=== PATIENT | male | born 1935 | race Caucasian/White ===

== ENCOUNTER 2016-09-12 13:34 | Observation (INO) | payer MEDICARE ==
[~2016-09-12] VITALS: Ht 175.3 cm; Wt 97.7 kg
[2016-09-12 14:41] LABS: BASO % 0.1 % (0.0-1.0); EOS # 0.1 K/mm3 (0.0-0.50); EOS % 0.6 % (0.0-3.0); LARGE UNSTAINED CELL # 0.1 K/mm3 (0.0-0.4); LARGE UNSTAINED CELL % 0.4 % (0.0-4.0); LYMPH # 0.7 K/mm3 (1.5-4.5); LYMPH % 5.4 % (24.0-44.0); MEAN CORPUSCULAR HEMOGLOBIN 31.2 pg (27.0-33.0); MEAN CORPUSCULAR HGB CONC 34.3 g/dl (32.0-36.5); MEAN CORPUSCULAR VOLUME 90.8 fl (80.0-96.0); MONO # 0.4 K/mm3 (0.0-0.8); NEUTROPHILS # 11.1 K/mm3 (1.8-7.7); NEUTROPHILS % 90.5 % (36.0-66.0); PLATELET COUNT, AUTOMATED 204 k/mm3 (150-450); RED CELL DISTRIBUTION WIDTH 12.3 % (11.5-14.5); WHITE BLOOD COUNT 12.2 K/mm3 (4.0-10.0)
--- NOTE | 2016-09-12 14:58 | ECGEPIP ---
Stationary ECG Study [facility] - ED Test Date: 2016-09-12 Pat Name: YUMIKO HAM Department: Room: - Gender: M Banana Grader: JACKIE : 1935 Requested By: SAMY Hawley Order Number: [id number] Reading MD: Taurus Marshall Measurements Intervals [place] Rate: 79 P: -41 WY: 141 QRS: -52 QRSD: 109 T: 57 QT: 380 QTc: 437 Interpretive Statements SINUS RHYTHM PATTERN CONSISTENT WITH PULMONARY DISEASE LEFT ANTERIOR FASCICULAR BLOCK MODERATE ST DEPRESSION SIMILAR TO 01/24/12 Electronically Signed On 09-12-2016 14:58:37 EDT by Taurus Marshall
[2016-09-12 15:03] LABS: ANION GAP 11 MEQ/L (8-16); BLOOD UREA NITROGEN 16 MG/DL (7-18); CALCIUM LEVEL 8.9 MG/DL (8.8-10.2); CARBON DIOXIDE LEVEL 27 MEQ/L (21-32); CHLORIDE LEVEL 100 MEQ/L (98-107); CREATININE FOR GFR 1.56 MG/DL (0.70-1.30); FREE T4 1.32 NG/DL (0.76-1.46); GLOMERULAR FILTRATION RATE 45.7 (>35); GLUCOSE, FASTING 190 MG/DL (83-110); POTASSIUM SERUM 3.6 MEQ/L (3.5-5.1); SODIUM LEVEL 138 MEQ/L (136-145)
[2016-09-12] MEDS ORDERED: METO12TA PO (15:18)
[2016-09-12] MEDS ORDERED: MULTTAB23 PO (15:18)
[2016-09-12] MEDS ORDERED: ZYRT10CA PO (15:18)
[2016-09-12] MEDS ORDERED: ASPI1TAB PO ×2 (15:18→16:27)
[2016-09-12] MEDS ORDERED: PANT20TA PO (15:18)
[2016-09-12] MEDS ORDERED: DYAZ37.5 PO (15:18)
[2016-09-12] MEDS ORDERED: COQ-100C2 PO (15:18)
[2016-09-12] MEDS ORDERED: CLOP75TA2 PO (15:18)
[2016-09-12] MEDS ORDERED: ATOR40TA PO (15:18)
[2016-09-12] MEDS ORDERED: ISOS30TA4 (15:18)
[2016-09-12] MEDS ORDERED: TRIA37.53 PO (15:18)
--- NOTE | 2016-09-12 15:21 | REP ---
PORTABLE CHEST: 09/12/2016 Comparison two-view chest earlier today at [facility]. CLINICAL HISTORY: Syncope, near-syncope. Lung mcginnis are adequately inflated slightly better than on the previous study. There is some basilar fibrotic change, greatest in the infrahilar region on the right, but no pleural effusion, lateral pleural thickening or pneumothorax. No parenchymal mass. Heart not grossly enlarged. There is no vascular redistribution or edema. The aorta is mildly tortuous, calcified without aneurysm. Airway intact. There are degenerative changes of the shoulders and spine. IMPRESSION: 1. Some basilar fibrotic change but no cardiomegaly, edema, effusion or acute infiltrate. Signed by Trevor Arriaga MD 09/12/2016 05:22 P
[2016-09-12] MEDS ORDERED: ACETAMINOPHEN TAB 650MG DOSE (2X325MG) PO PRN (15:45)
[2016-09-12] MEDS ORDERED: ONDANSETRON 4MG/2ML VIAL (J2405) IV PRN (15:45)
[2016-09-12] MEDS ORDERED: hydrOXYzine 25 MG TAB PO PRN (16:00)
[2016-09-12] MEDS ORDERED: raNITIdine SYRUP 150 MG/10 ML UDC PO ONE (16:15)
[2016-09-12] MEDS ORDERED: ISOS30TA4 PO (16:27)
[2016-09-12] MEDS ORDERED: FISH120012 PO (16:27)
[2016-09-12] MEDS ORDERED: PANT40TA2 PO (16:27)
[2016-09-12] MEDS ORDERED: VITA100066 PO (16:27)
[2016-09-12] MEDS ORDERED: NS 1,000 ML IV SCH (18:30)
[2016-09-12 18:59] VITALS: BP 141/63
--- NOTE | 2016-09-12 19:49 | HPE ---
DATE OF ADMISSION: 09/12/2016 PRIMARY CARE PHYSICIAN: Dr. Christine Saldivar INPATIENT HOSPITALIST ATTENDING: Dr. Enrique Leung CHIEF COMPLAINT: Syncopal episode. HISTORY OF THE PRESENT ILLNESS: An 80-year-old male with a history of coronary artery disease, status post stenting, recent nuclear stress test with [place] [facility], Dr. Prakash, was around May 2016, with reversible ischemia. The patient has been in his usual state of health until about 3 weeks ago when he complained of a productive cough, feeling fullness, shortness of breath, was given antibiotics at Dr. Saldivar's office. The patient states that after two to three of those intravenous medications, his "pneumonia" becomes controlled. A week later, the patient felt fullness of the lungs again with cough, no fever, chills, slight productive cough with dry white sputum. Once a year, he sees Dr. Saldivar for treatment and made an appointment on Monday. The patient was able to be seen on Monday, received a shot of ceftriaxone as he normally does and received Breo Ellipta. After taking the Breo Ellipta, the patient developed a maculopapular rash in bilateral upper extremities and chest. He went for a chest x-ray, sent for evaluation for pneumonia. Patient felt faint going into the room, he stool up too quickly, felt fainting and sat on the bed. He otherwise denies any nausea, vomiting, diaphoresis, chest pain, pressure, tightness, palpitations or lightheadedness. No dizziness. He was brought into the emergency room after the patient was found unresponsive for a few seconds. EKG in the emergency room shows sinus rhythm, ventricular rate of 79, pattern consistent with pulmonary disease with left anterior fascicular block and moderate ST depressions in the anterolateral leads. Hospitalist service was called for admission for patient's syncopal episode, evaluation of abnormal EKG. PAST MEDICAL HISTORY: Coronary artery disease, stent. Carotid endarterectomy bilaterally. History of pneumonia. Allergies. Hypercholesterolemia. Hypertension. Reflux disease. PAST SURGICAL HISTORY: Carotid endarterectomy bilaterally. Bilateral knee replacements. Stents. Bilateral hernia repair. SOCIAL HISTORY: Drinks wine occasionally with his meals, maybe twice a month. 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 No cigarette use. ALLERGIES: No allergies to food or medications prior to today - BREO ELLIPTA causing rash. REVIEW OF SYSTEMS: 12-point system negative aside from positive findings on history of the present illness. FAMILY HISTORY Noncontributory due to age. PHYSICAL EXAMINATION: Temperature 97.7, pulse 70, sinus rhythm, respiratory rate 18, blood pressure is 134/63, 95% on room air. Generlaly, the patient is awake, alert, oriented times three, answering questions appropriately. No jugular venous distention. No thyromegaly. No cervical lymphadenopathy. Dry mucous membranes. Lungs are diminished but clear to auscultation. No wheezing, rales, or rhonchi. Heart: S1, S2, sinus rhythm. No murmurs, rubs or gallops. Neck: The patient has prior bilateral carotid endarterectomy scars. Abdomen: Soft, nontender, nondistended. Bilateral hernia repair. Surgical scars well healed. Extremities: Trace pitting edema. LABORATORY DATA: White count 12.2, hemoglobin 13, hematocrit 37 and platelet count 204. Sodium 138, potassium 3.6, chloride 100, bicarbonate 27, BUN 16, creatinine 1.56, glucose of 190. Chest x-ray: Some basilar fibrotic change. No cardiomegaly, edema, effusion or acute infiltrate. ASSESSMENT AND PLAN: This is an 80-year-old male with a history of recurrent pneumonias, coronary artery disease, myocardial infarction (GA), stent, hypertension, hypercholesterolemia, reflux, carotid endarterectomy, peripheral vascular disease, bilateral knee replacement, hernia repair bilaterally, presents to the emergency room after a syncopal episode while in radiology getting a chest x-ray performed, and a maculopapular rash on the arms and chest after using Breo Ellipta. The patient had a syncopal episode and admitted for evaluation. Labs showed acute kidney injury. The patient will be admitted for observation, assigned to Dr. Leung for the following issues: 1. Syncope, most likely secondary to orthostatic hypotension or vasovagal syncope. The patient's triamterene, will be held in light of acute kidney injury and syncopal episode. Check vital, orthostatics, gentle fluid hydration 75 mL per hour. Rule out arrhythmia. Telemetry monitoring in the progressive care unit (PCU). Cycle cardiac markers. Obtain a 3D echo. The patient has no focal deficits on examination to warrant CT of the head. No changes in vision, headaches, no prior history of similar syncopal episodes. 2. Acute kidney injury, most likely secondary to dehydration, possible orthostasis. At this time, the patient's triamterene/hydrochlorothiazide will be discontinued. Gentle fluid hydration with normal saline 60 mL an hour. If no significant improvement, may check a PSA level and renal ultrasound. The patient denies any urinary symptoms at this time. Denies any difficulty maintaining starting his stream. Denies any nonsteroidal anti-inflammatory drug (NSAID) use. Denies any diarrhea or vomiting. 3. Upper respiratory infection symptoms. Receiving IV antibiotic as an outpatient. The patient has had a slightly elevated white count of 12.2. Will continue the ceftriaxone for now. Obtain official report of the chest x-ray. If sputum culture is negative, discontinue antibiotics. Check a respiratory panel. Continue with nebulizer treatments. 4. Peripheral vascular disease. Continue on home medications, aspirin. 5. Breo Ellipta causing a drug rash. Start on Zantac, Atarax as needed and two doses of prednisone. 6. Hyperlipidemia. Continue on atorvastatin. 7. Reflux. Continue on 8. History of peripheral vascular disease with carotid endarterectomy. Continue on aspirin.
[2016-09-12] MEDS: predniSONE 50 MG TAB PO SCH ×2 (20:23→23:40)
[2016-09-12 20:24] VITALS: BP 128/82
[2016-09-12] MEDS: TRIAMCINOLONE ACET 0.1% OINTMENT 15 GM TOP SCH (21:00)
[2016-09-12] MEDS: PANTOPRAZOLE 40MG TAB (PROTONIX) PO SCH (21:11)
[2016-09-12] MEDS: METOPROLOL TART 25 MG TABLET PO SCH (21:12)
[2016-09-12] MEDS: ATORVASTATIN 20 MG TAB PO SCH (21:12)
[2016-09-12 22:50] VITALS: BP 151/79
[2016-09-13] VITALS (7 sets, daily range): BP systolic 132–146; BP diastolic 64–73
[2016-09-13 05:30] LABS: EOS % 0.4 % (0.0-3.0); LARGE UNSTAINED CELL % 0.4 % (0.0-4.0); LYMPH # 0.9 K/mm3 (1.5-4.5); LYMPH % 11.7 % (24.0-44.0); MEAN CORPUSCULAR HGB CONC 34.3 g/dl (32.0-36.5); MEAN CORPUSCULAR VOLUME 90.4 fl (80.0-96.0); MONO # 0.2 K/mm3 (0.0-0.8); NEUTROPHILS # 6.2 K/mm3 (1.8-7.7); NEUTROPHILS % 84.5 % (36.0-66.0); PLATELET COUNT, AUTOMATED 204 k/mm3 (150-450); RED CELL DISTRIBUTION WIDTH 12.5 % (11.5-14.5); WHITE BLOOD COUNT 7.4 K/mm3 (4.0-10.0)
[2016-09-13 05:44] LABS: ANION GAP 11 MEQ/L (8-16); BLOOD UREA NITROGEN 18 MG/DL (7-18); CALCIUM LEVEL 8.9 MG/DL (8.8-10.2); CARBON DIOXIDE LEVEL 25 MEQ/L (21-32); CHLORIDE LEVEL 103 MEQ/L (98-107); CREATININE FOR GFR 1.36 MG/DL (0.70-1.30); GLOMERULAR FILTRATION RATE 53.5 (>35); GLUCOSE, FASTING 267 MG/DL (83-110); MAGNESIUM LEVEL 2.2 MG/DL (1.8-2.4); SODIUM LEVEL 139 MEQ/L (136-145)
[2016-09-13] MEDS: OCUVITE 1 TAB PO SCH (08:40)
[2016-09-13] MEDS: ASPIRIN 81 MG ENTERIC TAB PO SCH (08:40)
[2016-09-13] MEDS: raNITIdine SYRUP 150 MG/10 ML UDC PO SCH ×2 (08:42→21:23)
[2016-09-13] MEDS: CETIRIZINE (ZyrTEC) 10 MG TAB PO SCH (08:42)
[2016-09-13] MEDS: METOPROLOL TART 25 MG TABLET PO SCH ×2 (08:45→21:23)
[2016-09-13] MEDS: CLOPIDOGREL 75 MG TAB PO SCH (08:45)
[2016-09-13] MEDS: ISOSORBIDE MON. (IMDUR) 30 MG XR TAB PO SCH (08:45)
[2016-09-13] MEDS: VITAMIN D 1,000 INTERNATIONAL UNITS TABLET PO SCH (08:45)
[2016-09-13] MEDS: cefTRIAXone SOD 2 GM in D5W MINI-BAG PLUS 50 ML IV SCH (08:46)
[2016-09-13] MEDS: TRIAMCINOLONE ACET 0.1% OINTMENT 15 GM TOP SCH ×2 (09:00→21:00)
[2016-09-13] MEDS ORDERED: DYAZIDE 37.5/25 CAP (TRIAM/HCTZ) PO SCH (09:00)
--- NOTE | 2016-09-13 10:26 | ECGEPIP ---
Stationary ECG Study [facility] Test Date: 2016-09-13 Pat Name: YUMIKO HAM Department: Room: [place] [address] Gender: M Jack Frame Tender: TOMÁS : 1935 Requested By: ARMIDA Huston Order Number: [id number] Reading MD: Nicholas Reich Measurements Intervals [place] Rate: 92 P: 95 NV: 231 QRS: -51 QRSD: 110 T: 63 QT: 370 QTc: 459 Interpretive Statements Normal sinus rhythm First-degree AV block Left anterior hemiblock with subtle intraventricular conduction delay and slow precordial R-wave progression Lateral ST/T-wave abnormalities No change from 09/12/16 Electronically Signed On 09-13-2016 10:26:00 EDT by Nicholas Reich
--- NOTE | 2016-09-13 12:28 | IPN ---
DATE: 09/13/2016 80-year-old gentleman seen at bedside. No issues overnight. He is resting comfortably. He did have a 2D echo that is pending at this time. No chest pain, nausea, vomiting. Tolerating meals. He is pleasant to talk to. He did describe the issue with his syncopal episode, while he was having a study performed he had tunnel vision and became lightheaded and did feel that he completely blacked out as indicated in his history and physical (H and P). Additionally, he has been treated by Dr. Saldivar for his shortness of breath, cough, and pneumonia with Rocephin, which he feels he does respond typically to, and he has continued on this since his admission yesterday. OBJECTIVE: Temperature is 98.8, pulse 92, respiratory rate is 22, blood pressure 135/73, SPO2 is 94% on room air. GENERAL: The patient appears to be in no acute distress. He is alert, oriented. HEENT: Unremarkable. LUNGS: Clear. HEART: Regular rate and rhythm. ABDOMEN: Soft. EXTREMITIES: No edema, no calf tenderness. LABORATORIES: White count 7.4, down from 12.2. Hemoglobin is 12.7 and platelets 204,000. Sodium 139, potassium 4.0, chloride 103, bicarb 25, anion gap 11, BUN is 18, creatinine 1.36 down from 1.56, glucose 267, hemoglobin A1c 8.3. Troponins remained less than 0.02 times four. Chest x-ray yesterday did show some basilar fibrotic change but no cardiomegaly, edema, effusion, or acute infiltrate. ASSESSMENT/PLAN: 1. Syncope, likely vasovagal versus orthostatic. Diuretics have been placed on hold for the time being, which appears to be some mild acute kidney injury. Orthostatics appear to be unremarkable. No issues seen on telemetry. His cardiac markers have been negative. 2D echo is pending at this time. 2. Acute kidney injury, likely secondary to some mild dehydration. His diuretics are on hold. He did receive some gentle fluid hydration which we will discontinue. Avoid nephrotoxic medications. He does not appear to have any obstructive uropathy. He does appear to be voiding fine. Will continue to follow, and repeat his renal profile tomorrow morning. 3. Upper respiratory infection. Lungs appear to be clear. He is receiving Rocephin. Will continue for now. His chest x-ray is unremarkable, and he will continue with Roque and followup with Dr. Saldivar as an outpatient. 4. Drug rash. Breo Ellipta has been discontinued. He did receive some Zantac, Atarax, two doses of prednisone. No further issues. 5. Hyperlipidemia. Continue atorvastatin. 6. Gastroesophageal reflux disease (GERD). Continue on Zantac. 7. History of peripheral vascular disease with carotid endarterectomy in the past. Can followup as outpatient. 8. Deep venous thrombosis (DVT) prophylaxis. Encouraged to ambulate. He is currently on Plavix and aspirin. DISPOSITION: Anticipate home discharge in the next 24 hours.
[2016-09-13] MEDS ORDERED: GLUCOSE 4 GM CHEW TABLET PO PRN (17:30)
[2016-09-13] MEDS ORDERED: DEXTROSE 50% 50 ML SYRINGE IV PRN (17:30)
[2016-09-13] MEDS: HumaLOG INSULIN (NovoLOG) PER UNIT SC SCH (17:30)
[2016-09-13] MEDS ORDERED: GLUCAGON FOR INJ 1 MG VIAL (J1610) SC PRN (17:30)
[2016-09-13] MEDS ORDERED: cefTRIAXone SOD 2 GM in D5W MINI-BAG PLUS 50 ML IV SCH (19:00)
[2016-09-13] MEDS ORDERED: HumaLOG INSULIN (NovoLOG) PER UNIT SC SCH (21:00)
[2016-09-13] MEDS: ATORVASTATIN 20 MG TAB PO SCH (21:22)
[2016-09-13] MEDS: PANTOPRAZOLE 40MG TAB (PROTONIX) PO SCH (21:23)
[2016-09-14 00:09] VITALS: BP 148/70
[2016-09-14 04:20] VITALS: BP 150/69
[2016-09-14 06:03] LABS: MEAN CORPUSCULAR HEMOGLOBIN 31.3 pg (27.0-33.0); MEAN CORPUSCULAR HGB CONC 34.1 g/dl (32.0-36.5); RED CELL DISTRIBUTION WIDTH 12.6 % (11.5-14.5); WHITE BLOOD COUNT 11.4 K/mm3 (4.0-10.0)
[2016-09-14 06:19] LABS: CALCIUM LEVEL 8.9 MG/DL (8.8-10.2); CREATININE FOR GFR 1.29 MG/DL (0.70-1.30); GLOMERULAR FILTRATION RATE 56.9 (>35); POTASSIUM SERUM 3.9 MEQ/L (3.5-5.1)
[2016-09-14] MEDS: HumaLOG INSULIN (NovoLOG) PER UNIT SC SCH ×2 (07:30→12:00)
[2016-09-14 08:00] VITALS: BP 155/76
[2016-09-14] MEDS: TRIAMCINOLONE ACET 0.1% OINTMENT 15 GM TOP SCH (09:00)
[2016-09-14] MEDS: METOPROLOL TART 25 MG TABLET PO SCH (09:38)
[2016-09-14] MEDS: ASPIRIN 81 MG ENTERIC TAB PO SCH (09:38)
[2016-09-14] MEDS: OCUVITE 1 TAB PO SCH (09:38)
[2016-09-14] MEDS: raNITIdine SYRUP 150 MG/10 ML UDC PO SCH (09:38)
[2016-09-14] MEDS: VITAMIN D 1,000 INTERNATIONAL UNITS TABLET PO SCH (09:38)
[2016-09-14] MEDS: CETIRIZINE (ZyrTEC) 10 MG TAB PO SCH (09:38)
[2016-09-14] MEDS: CLOPIDOGREL 75 MG TAB PO SCH (09:38)
[2016-09-14] MEDS: ISOSORBIDE MON. (IMDUR) 30 MG XR TAB PO SCH (09:38)
[2016-09-14] MEDS: cefTRIAXone SOD 2 GM in D5W MINI-BAG PLUS 50 ML IV SCH (09:39)
[2016-09-14 12:17] VITALS: BP 111/61
--- NOTE | 2016-09-14 15:58 | DSES ---
DATE OF ADMISSION: 09/12/2016 DATE OF DISCHARGE: 09/14/2016 PRIMARY CARE PROVIDER: Dr. Christine Saldivar CONSULTATIONS: None. PROCEDURES PERFORMED: None. COMPLICATIONS: None. ADMISSION/DISCHARGE DIAGNOSES: 1, Presyncopal event, likely related to vasovagal versus orthostatic hypotension. 2. Acute kidney injury, mild and resolved. 3. Upper respiratory infection, symptoms resolved. 4. Peripheral vascular disease, status post carotid endarterectomy. 5. History of gastroesophageal reflux disease (GERD). 6. Hyperlipidemia. BRIEF HOSPITAL COURSE: Mr. 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 He has been in his normal state of health up until about 3 weeks ago when he developed an intermittent productive cough and has been seen in Dr. Saldivar's office, receiving intramuscular (IM) Rocephin injections and was to have another injection, and he was felt to have had a drug rash eruption related to Breo Ellipta, was sent to the hospital for chest x-ray to evaluate for pneumonia, felt faint while standing and had to lie down. In the emergency department his EKG showed sinus rhythm, ventricular rate of 79, pattern was consistent with pulmonary disease but no acute ST-T wave abnormalities was noted. Hospitalist was called for admission for presyncopal event and further evaluation. He did well during his hospital stay here. He did have some noted mild acute kidney injury with a creatinine of 1.56, that has since returned to baseline. On day of discharge he was breathing well without any significant restrictions, ambulated well in the corridor as well. PHYSICAL EXAMINATION: Today: Temperature 98, pulse 62, respiratory rate 18, blood pressure 111/61, SpO2 is 95% on room air. GENERAL: The patient appears to be in no acute distress, alert, oriented. HEENT: Unremarkable. LUNGS: Clear. HEART: Regular rate and rhythm. ABDOMEN: Soft. EXTREMITIES: No edema. No calf tenderness. LABORATORY DATA: White count 11.4, hemoglobin 11.6, platelets 208. Sodium 141, potassium 3.9, chloride 105, bicarbonate 29, anion gap 7, BUN is 21, creatinine 1.29, glucose 160, hemoglobin A1c is 8.3. DISCHARGE CONDITION: Good. DISPOSITION: Discharge to home. DISCHARGE MEDICATIONS: - aspirin 81 mg daily - Lipitor 40 mg daily - Zyrtec 10 mg daily - vitamin D 1000 units daily - Plavix 75 mg daily - coenzyme Q10 100 mg nightly - fish oil 1200 mg nightly - triamterene/hydrochlorothiazide 37.5/25 mg daily - isosorbide mononitrate ER 30 mg daily - metoprolol tartrate 25 mg twice a day - multivitamin for men daily - pantoprazole 40 mg nightly DISCHARGE INSTRUCTIONS: Discharge to home. Activity as tolerated. Consistent carbohydrate diet. He should followup with his primary regarding possible of starting on oral diabetic medications due to likely having diabetes. Will defer this to his outpatient provider. He does appear to be doing well from a respiratory standpoint but I will defer any further injections of Rocephin to his primary care provider. 2D echo unfortunately has not been resulted yet, which is unfortunate, however, the patient is seeing Dr. Saldivar today. Clinically he appears to be stable for discharge and Dr. Saldivar can followup those results once they have been transcribed. OTHER DISCHARGE INSTRUCTIONS: He does appear to be getting along well at this point, however, he is instructed to seek medical attention if symptoms should worsen or progress. He voices understanding.
--- NOTE | 2016-09-15 17:02 | ECHO ---
DATE OF PROCEDURE: 09/14/2016 AGE: 80 GENDER: Male HEIGHT: 69 inches WEIGHT: 200 pounds BODY SURFACE AREA: 2.07 m2 PATIENT LOCATION: Inpatient, PCU, room 321 REFERRING PHYSICIAN: Ana Espinoza MD INDICATION: Syncope. 2-D MEASUREMENTS: RV: 4.0 cm LV: 4.1 cm Septum: 1.2 cm Posterior wall: 1.1 cm Aortic root: 3.5 cm LA: 4.5 cm LVEF: 75 - 80% DOPPLER MEASUREMENTS: AV: 2.2 m/s LVOT: 1.2 m/s LVOT diameter: 2.2 cm Mean AV systolic gradient: 12 mmHg MV-E: 90, A: 120, EA ratio: 0.8 Early mitral deceleration time: 222 ms E prime: 5.1, A prime: 8, E/E prime ratio: 17.8 PV: 0.87 m/s Pulmonary artery acceleration time: 92 ms RVSP: 38 mmHg IVC: 1.7 cm COMMENTS: Normal sinus rhythm without intraventricular conduction disturbance. Mild to moderately dilated left atrium, but normal left ventricular size. Right heart chambers were upper limits of normal to slightly dilated. Right ventricular free wall motion was normal. On real-time imaging from the parasternal and apical projections left ventricular wall motion was symmetrical and hyperkinetic. Mild mitral annular calcification with normal leaflet thickness and excursion with no posterior systolic buckling. Three equal size aortic cusps with moderately thickened cusp edges and reduced cusp separation. Normal aortic root size. No apparent intracardiac mass. Minuscule posterior pericardial effusion. Color flow Doppler study taken from the parasternal and apical projection showed no aortic, trace mitral and mild tricuspid insufficiency (physiological findings). Guided continuous wave Doppler of his aortic valve showed an increased peak systolic velocity and this was associated with at least a mildly increased mean transvalvular gradient. However, with the observed hyperkinetic left ventricle wall motion and the measured left ventricle (LV) outflow tract velocity, his dimensionless index was not significantly abnormal consistent with no more than a marginal to mild degree of calcific aortic stenosis. Pulsed and continuous wave Doppler of his LV inflow tract taken from the apical four-chamber projection showed normal diastolic filling velocities against mitral stenosis. There was more prominent late diastolic/atrial dependent filling pattern. Diastolic dysfunction was further confirmed by prolonged early mitral deceleration time and tissue Doppler of his mitral annulus. His estimated mean left atrial pressure was elevated at least 20 mmHg. Pulsed and continuous wave Doppler of his pulmonary trunk showed a normal peak systolic velocity against right ventricle (RV) outflow tract obstruction. His pulmonary acceleration time was abbreviated consistent with an elevated pulmonary vascular resistance. Guided continuous wave Doppler of his tricuspid valve allowed our estimation of his right ventricular systolic pressure (mildly increased). His inferior vena cava was of normal size with normal respiratory collapse against an elevated central venous pressure. CONCLUSIONS: Unable to clearly identify a structural or functional abnormality severe enough to account for the patient's syncopal spell. At least mild calcific aortic stenosis without insufficiency. Mild mitral annular calcification without valvular dysfunction. Normal left ventricular size, wall thickness and hyperkinetic wall motion. Mild to moderately dilated left atrium with Doppler evidence of an impairment of LV diastolic function and elevated mean left atrial pressure. Right heart chamber sizes appeared to be upper limits of normal with Doppler evidence of mild pulmonary hypertension. Normal inferior vena cava (IVC) size and collapse against an elevated central venous pressure.
== END 2016-09-14 12:55 | disposition home or self-care (01) ==
LOC: EDBD 13:34 → EDSEX 13:34 → M ED 15:43 → M ED INP 15:53 → M PCU 22:34
PROVIDERS: ADMIT General Practice; ATTEND Hospitalist
DX: R55 Syncope and collapse (principal); N17.9 Acute kidney failure, unspecified; J06.9 Acute upper respiratory infection, unspecified; I73.9 Peripheral vascular disease, unspecified; K21.9 Gastro-esophageal reflux disease without esophagitis; E78.4 Other hyperlipidemia; I10 Essential (primary) hypertension; Z79.82 Long term (current) use of aspirin; Z79.02 Long term (current) use of antithrombotics/antiplatelets; Z79.899 Other long term (current) drug therapy; I25.10 Atherosclerotic heart disease of native coronary artery without angina pectoris; Z98.61 Coronary angioplasty status
CPT/HCPCS: 36415; 71010; 80048; 82550; 82553; 83036; 83735; 84439; 84443; 84484; 85025; 85027; 93005; 93041; 93306; 94760; 96376; 99285; G0378; J0696

== ENCOUNTER → 2016-09-15 | Outpatient (CLI) | payer MEDICARE ==
[~2016-09-15] MED LIST: ASPI1TAB PO; ATOR40TA PO; CLOP75TA2 PO; COQ-100C2 PO; DYAZ37.5 PO; FISH120012 PO; ISOS30TA4; ISOS30TA4 PO; METO12TA PO; MULTTAB23 PO; PANT20TA PO; PANT40TA2 PO; TRIA37.53 PO; VITA100066 PO; ZYRT10CA PO
--- NOTE | 2016-09-19 06:21 | RADONC ---
RADIATION ONCOLOGY DATE: 09/15/2016 CONSULTATION NOTE DIAGNOSIS: Squamous cell carcinoma. Stage 1, T1N0M0. ECOG PERFORMANCE STATUS: 0. FOLLOWUP NOTE: Mr. 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 HISTORY OF PRESENT ILLNESS: The patient was in his usual state of health until he found a nodular density on his left anterior scalp. On 08/16/2016, he underwent excisional biopsy and pathology revealed a well-differentiated invasive squamous cell carcinoma involving the deep margin of resection. The patient has done well since surgery and is now presenting for consideration of postoperative radiation therapy in attempt to achieve local control. PAST MEDICAL HISTORY: The patient's past medical history is positive for hypertension, diabetes, arthritis, bronchitis, and cardiac issues requiring cardiac stents. ALLERGIES: The patient has no known drug allergies. SOCIAL HISTORY: The patient does not smoke cigarettes nor abuse alcohol. FAMILY HISTORY: The patient's family history is negative for skin cancer or other malignancies. REVIEW OF SYSTEMS: The patient's review of systems is largely noncontributory. Denies nausea, vomiting, fevers, chills, night sweats, diplopia, headaches, anxiety or depression, anorexia, weight loss, visual disturbances, chest pain, urinary or bowel difficulties, bone pain, or neurological problems. PHYSICAL EXAMINATION: The patient is a well-developed, well-nourished, 80-year-old white male in no acute distress. HEENT: Exam is normocephalic, atraumatic. There is a small healed surgical scar present over the patient's scalp consistent with his above history. There are no other lesions which are suspicious over the scalp, face or neck. There is no palpable preauricular, cervical, supraclavicular, infraclavicular or axillary lymphadenopathy present. His lungs are clear to auscultation and percussion. His heart has a regular rate and rhythm. ASSESSMENT: The patient is presenting to us today with what appears to be a stage I, T1N0M0 squamous cell carcinoma of the scalp status post resection with a positive margin for consideration of postoperative radiation therapy. Clearly, the patient is a candidate for external beam radiation therapy and I have so informed him. I have discussed with the patient in detail the potential benefits as well as possible acute and chronic sequelae of external beam radiation therapy. We discussed logistics of treatment planning, simulation and subsequent fractionated daily radiation treatments. I have scheduled the patient for the next available simulation slot and radiation treatments will begin subsequently. Thank you for allowing us to participate in the care of this very pleasant gentleman. If I could be of any further assistance or provide you with any information, please feel free to contact me at any mc. As always warm regards. cc: *Christine Saldivar MD
== END ==
LOC: M ONCR 08:55
PROVIDERS: ATTEND Radiology Radiation Oncology
DX: C44.42 Squamous cell carcinoma of skin of scalp and neck (principal)

== ENCOUNTER 2016-09-19 11:16 | Outpatient (RCR) | payer MEDICARE ==
--- NOTE | 2016-09-19 15:17 | RADONC ---
RADIATION ONCOLOGY SIMULATION NOTE DATE: 09/19/2016 CHART NUMBER: [id number] Mr. Liu was taken to the linear accelerator today for clinical setup of his scalp field. Setup was accomplished without difficulty or discomfort. Radiation treatment planning is underway, and radiation treatments will begin subsequently. An immobilization device was created without difficulty or discomfort and will be utilized throughout the course of treatment. I was physically present throughout the course of simulation.
== END 2016-10-02 ==
LOC: M ONCR 11:16
PROVIDERS: ATTEND Radiology Radiation Oncology
DX: C44.42 Squamous cell carcinoma of skin of scalp and neck (principal)

== ENCOUNTER 2016-10-03 13:31 | Outpatient (RCR) | payer MEDICARE ==
--- NOTE | 2016-10-04 07:09 | RADONC ---
RADIATION ONCOLOGY PROGRESS NOTE: DATE: 10/03/2016 CHART NO: [id number] Mr. Liu is presently at a dose of 1250 cGy to his scalp and is tolerating treatments quite well at this point with no complaints related to his radiation therapy. He is having no skin pain or other discomfort. REVIEW OF SYSTEMS: The patient's review of systems is noncontributory. Denies nausea, vomiting, fevers, chills, night sweats, diplopia, headaches, anxiety or depression, anorexia, weight loss, visual disturbances, chest pain, urinary or bowel difficulties, bone pain, or neurological problems. PHYSICAL EXAMINATION: The patient's skin is in good condition with no evidence of radiation change present. There is no evidence of moist or dry desquamation. The remainder of his physical exam remains unchanged. Mr. Liu is tolerating treatments quite well and radiation will continue as scheduled.
--- NOTE | 2016-10-10 14:29 | RADONC ---
RADIATION ONCOLOGY PROGRESS NOTE DATE: 10/10/2016 CHART NUMBER: [id number] Mr. Liu is presently at a dose of 2500 cGy to his scalp and is tolerating treatments quite well at this point with no complaints related to his radiation therapy. He is having no skin or other pain. REVIEW OF SYSTEMS: The patient's review of systems is noncontributory. Denies nausea, vomiting, fevers, chills, night sweats, diplopia, headaches, anxiety or depression, anorexia, weight loss, visual disturbances, chest pain, urinary or bowel difficulties, bone pain, or neurological problems. PHYSICAL EXAMINATION: The patient's skin is in good condition with no evidence of moist or dry desquamation. The remainder of his physical exam remains unchanged. Mr. Liu is tolerating treatments quite well and radiation will continue as scheduled.
--- NOTE | 2016-10-18 09:55 | RADONC ---
RADIATION ONCOLOGY PROGRESS NOTE DATE: 10/17/2016 CHART NUMBER: [id number] Mr. Liu is presently at a dose of 5000 cGy to his scalp and is tolerating treatments quite well at this point with no complaints related to his radiation therapy. He is having no scalp or bone pain. The patient's review of systems is noncontributory. He denies nausea, vomiting, fevers, chills, night sweats, diplopia, headaches, anxiety or depression, anorexia, weight loss, visual disturbances, chest pain, urinary or bowel difficulties, bone pain, or neurological problems. PHYSICAL EXAMINATION The patient's skin shows some erythema and tanning present but overall is in good condition with no evidence of moist or dry desquamation. The remainder of his physical exam remains unchanged. Mr. Liu is tolerating treatments quite well and radiation will continue as scheduled.
--- NOTE | 2016-10-24 15:20 | RADONC ---
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 ECOG PERFORMANCE STATUS: 0. TREATMENT SUMMARY: Mr. Liu is a very pleasant 80-year-old white male with the diagnosis of a stage I, T1N0M0, squamous cell carcinoma of the scalp who presented to us for consideration of postoperative radiation therapy in an attempt to achieve local control and cure. We treated the patient to his scalp for a total dose of 5000 cGy delivered in 20 fractions of 250 cGy each over 27 elapsed days from 09/27/2016 through 10/24/2016. The patient's scalp was treated on a linear accelerator utilizing a 6 MeV electron beam prescribed to the 90% isodose line via en face technique. 1/2 cm of tissue equivalent bolus was used throughout the course of treatment. Mr. Liu tolerated his treatments quite well and was able complete therapy as prescribed without interruption. I have scheduled the patient to see me again in 1 month for further followup. He will also continue to be followed by his other physicians as well. cc: *Christine Saldivar MD
== END 2016-11-02 ==
LOC: M ONCR 13:31
PROVIDERS: ATTEND Radiology Radiation Oncology
DX: C44.42 Squamous cell carcinoma of skin of scalp and neck (principal)

== ENCOUNTER → 2016-11-30 | Outpatient (CLI) | payer MEDICARE ==
[~2016-11-30] MED LIST changes: -ATOR40TA PO; +ATOR40TA75 PO; -METO12TA PO; +METO1TAB87 PO
--- NOTE | 2016-12-01 09:34 | RADONC ---
RADIATION ONCOLOGY FOLLOWUP NOTE: DATE: 11/30/2016 CHART NUMBER: [id number]. 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 ECOG PERFORMANCE STATUS: Zero. FOLLOWUP NOTE: Mr. Liu is a very pleasant, 80-year-old white male with the diagnosis of a stage I, T1N0M0, squamous cell carcinoma of the scalp who is presenting to us today for routine followup visit 1 month post completion of external beam radiation therapy. The patient presents today reporting that he is doing quite well with no complaints at this time related to his radiation therapy or disease. He has no skin pain or discomfort. REVIEW OF SYSTEMS: The patient's review of systems is noncontributory. Denies nausea, vomiting, fevers, chills, night sweats, diplopia, headaches, anxiety or depression, anorexia, weight loss, visual disturbances, chest pain, urinary or bowel difficulties, bone pain, or neurological problems. PHYSICAL EXAMINATION: The patient's skin over the treated field is in excellent condition with no evidence of radiation change present. There is no moist or dry desquamation. The patient's skin shows no evidence of nodularity, ulceration, residual or recurrent disease. There are no other lesions present of concern over the face, neck or scalp. There is no palpable preauricular, cervical, supraclavicular or infraclavicular lymphadenopathy present. ASSESSMENT: The patient is clinically GONZALEZ at this time. I have discharged him from my followup except on an as needed basis. Of course, we are available to him at anytime should he have any questions or if he of anything of concern. cc: Christine Saldivar MD
== END ==
LOC: M ONCR 13:50
PROVIDERS: ATTEND Radiology Radiation Oncology
DX: C44.42 Squamous cell carcinoma of skin of scalp and neck (principal)

== ENCOUNTER → 2017-02-22 | Outpatient (CLI) | payer MEDICARE ==
[~2017-02-22] MED LIST changes: +E-Z-GAS II EFFERVESCENT PACKET (SODIUM BICARB./CITRIC ACID/SIMETHICONE) As Ordered ONE; +E-Z-HD 98% w/w 340GM SUSP BTL As Ordered ONE; +E-Z-PAQUE 96% w/w SUSP 176GM BTL As Ordered ONE
--- NOTE | 2017-02-22 11:23 | REP ---
THYROID ULTRASOUND: Real-time sonographic evaluation of the thyroid performed. Right lobe measures 4.7 x 1.6 x 2.4 cm and the left lobe 4.7 x 1.5 x 2.6 cm. Echotexture is diffusely heterogenous. There is a tiny cyst in the left upper pole containing an echogenic focus internally. The cyst measures 3 x 3 x 5 mm. No suspicious solid nodule is seen. IMPRESSION: Tiny cyst, left lobe of thyroid. No suspicious solid nodule. Signed by Eleazar Alba MD 02/22/2017 01:42 P
--- NOTE | 2017-02-22 17:15 | REP ---
ESOPHAGRAM: The procedure was performed under the direct supervision of Dr. Alba. The images were reviewed with Dr. Alba. A single view PA chest x-ray is submitted as a traffic signal repairer film. There is no change compared to a previous chest x-ray performed on 10/03/2016. Liquid barium and gas-producing granules were given in the erect position as well as liquid barium in the prone oblique positions in order to perform a double contrast esophagram examination. The oral and pharyngeal stages of deglutition are unremarkable. 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 Esophageal transport is prompt and efficient and there is no esophagitis, stricture, mucosal ring or hiatal hernia. There is gastroesophageal reflux demonstrated to above the level of the ry. IMPRESSION: 1. 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 2. There is gastroesophageal reflux demonstrated to above the level of the ry. 59 seconds of fluoroscopy time was utilized for this procedure. Reviewed by FORTINO Villegas 02/24/2017 04:00 PEdited and Signed by Eleazar Alba MD 02/24/2017 07:20 P
== END ==
LOC: M RAD 10:05
PROVIDERS: ATTEND Family Medicine
DX: R47.02 Dysphasia (principal); E04.1 Nontoxic single thyroid nodule; K21.9 Gastro-esophageal reflux disease without esophagitis

== ENCOUNTER → 2018-02-07 | Outpatient (CLI) | payer MEDICARE ==
[2018-02-07 12:51] LABS: HEMATOCRIT 29.3 % (42.0-52.0); HEMOGLOBIN 9.6 g/dl (13.5-17.5); MEAN CORPUSCULAR HEMOGLOBIN 29.8 pg (27.0-33.0); MEAN CORPUSCULAR HGB CONC 32.8 g/dl (32.0-36.5); PLATELET COUNT, AUTOMATED 192 10^3/uL (150-450); RED BLOOD COUNT 3.22 10^6/uL (4.30-6.10); RED CELL DISTRIBUTION WIDTH 13.7 % (11.5-14.5)
[2018-02-07 13:22] LABS: TOTAL 25(OH) VITAMIN D 44.1 NG/ML (30.0-100.0)
[2018-02-07 14:33] LABS: ALBUMIN 3.5 GM/DL (3.2-5.2); ALBUMIN/GLOBULIN RATIO 1.17 (1.00-1.93); ALKALINE PHOSPHATASE 166 U/L (45-117); ALT/SGPT 26 U/L (12-78); ANION GAP 9 MEQ/L (8-16); AST/SGOT 20 U/L (7-37); BILIRUBIN,TOTAL 0.3 MG/DL (0.2-1.0); BLOOD UREA NITROGEN 28 MG/DL (7-18); CALCIUM LEVEL 9.2 MG/DL (8.8-10.2); CARBON DIOXIDE LEVEL 26 MEQ/L (21-32); CHLORIDE LEVEL 107 MEQ/L (98-107); GLOMERULAR FILTRATION RATE 56.1 (>35); GLUCOSE, FASTING 124 MG/DL (70-100); POTASSIUM SERUM 4.8 MEQ/L (3.5-5.1); PROSTATIC SPECIFIC AG MONITOR 5.08 NG/ML (< 4.0); SODIUM LEVEL 142 MEQ/L (136-145); THYROID STIMULATING HORMONE 0.824 uIU/ML (0.358-3.740); TOTAL PROTEIN 6.5 GM/DL (6.4-8.2)
[2018-02-07 16:46] LABS: ESTIMATED AVERAGE GLUCOSE 140 MG/DL (60-110); HEMOGLOBIN A1c 6.5 %
== END ==
LOC: M LAB 12:11
DX: I10 Essential (primary) hypertension (principal); Z79.899 Other long term (current) drug therapy
CPT/HCPCS: 84443

== ENCOUNTER 2020-11-19 11:20 | Inpatient (IN) | payer MEDICARE ==
[~2020-11-19] VITALS: Ht 172.7 cm; Wt 93.3 kg
[~2020-11-19 11:20] MED LIST changes: -ASPI1TAB PO; +ASPI81TA26 PO; -E-Z-GAS II EFFERVESCENT PACKET (SODIUM BICARB./CITRIC ACID/SIMETHICONE) As Ordered ONE; -E-Z-HD 98% w/w 340GM SUSP BTL As Ordered ONE; -E-Z-PAQUE 96% w/w SUSP 176GM BTL As Ordered ONE; +ISOS1TAB35; +ISOS1TAB35 PO; -ISOS30TA4; -ISOS30TA4 PO; -PANT20TA PO; +PANT20TA6 PO; -PANT40TA2 PO; +PANT40TA29 PO
[2020-11-19] MEDS ORDERED: LISI20TA33 PO (12:03)
[2020-11-19] MEDS ORDERED: SPIR-10 PO (12:03)
[2020-11-19] MEDS ORDERED: LEVO50TA5 PO (12:03)
[2020-11-19] MEDS ORDERED: MONT10TA10 PO (12:03)
[2020-11-19] MEDS ORDERED: ROSU40TA4 PO (12:03)
[2020-11-19] MEDS ORDERED: ELIQ5TAB PO (12:03)
[2020-11-19] MEDS ORDERED: TAMS1CAP17 PO (12:04)
[2020-11-19] MEDS ORDERED: NS 500 ML IV ONE (12:45)
[2020-11-19] MEDS ORDERED: NS 1,000 ML IV SCH (12:45)
[2020-11-19 12:49] LABS: BASO % 0.3 % (0.0-1.0); EOS # 0.2 10^3/uL (0.0-0.5); EOS % 3.2 % (0.0-3.0); HEMOGLOBIN 10.8 g/dl (13.5-17.5); LYMPH # 0.8 10^3/uL (1.5-5.0); LYMPH % 10.8 % (24.0-44.0); MEAN CORPUSCULAR HGB CONC 32.7 g/dl (32.0-36.5); MEAN CORPUSCULAR VOLUME 94.8 fl (80.0-96.0); MONO # 0.9 10^3/uL (0.0-0.8); MONO % 12.2 % (2.0-8.0); NEUTROPHILS # 5.5 10^3/uL (1.5-8.5); NEUTROPHILS % 73.2 % (36.0-66.0); PLATELET COUNT, AUTOMATED 137 10^3/uL (150-450); RED BLOOD COUNT 3.48 10^6/uL (4.30-6.10); WHITE BLOOD COUNT 7.6 10^3/uL (4.0-10.0)
[2020-11-19 13:00] LABS: ALBUMIN 3.2 GM/DL (3.2-5.2); BILIRUBIN,DIRECT 0.2 MG/DL (0.0-0.2); BILIRUBIN,TOTAL 0.6 MG/DL (0.2-1.0); THYROID STIMULATING HORMONE 1.88 uIU/ML (0.358-3.740); TOTAL PROTEIN 6.3 GM/DL (6.4-8.2)
--- NOTE | 2020-11-19 13:44 | REP ---
INDICATION: syncope. COMPARISON: 10/03/2016. TECHNIQUE: Single portable AP view of the chest was performed. FINDINGS: There is mild cardiomegaly. There is some calcification of the thoracic aorta. The mediastinal silhouette is unchanged. There stable bibasilar fibrotic changes with no definite superimposed acute infiltrate. IMPRESSION: No acute pulmonary disease.Mild cardiomegaly and stable chronic interstitial changes. <Electronically signed by Eleazar Alba > 11/19/20 [id number]
[2020-11-19] MEDS ORDERED: cefTRIAXone SOD 1 GM in D5W MINI-BAG PLUS 50 ML IV ONE (14:05)
[2020-11-19] MEDS ORDERED: METO100T5 PO (14:58)
[2020-11-19] MEDS ORDERED: CO Q100C10 PO (14:58)
[2020-11-19] MEDS ORDERED: ISOS1TAB36 PO (14:58)
[2020-11-19] MEDS ORDERED: D31000TA2 PO (14:58)
[2020-11-19] MEDS ORDERED: KP F1200 PO (14:58)
[2020-11-19 16:28] LABS: RSV AMPLIFICATION NEGATIVE (NEGATIVE)
--- NOTE | 2020-11-19 16:41 | HPEPDOC ---
General Date of Admission Nov 19, 2020 at 15:32 Date of Service: Nov 19, 2020 Chief Complaint The patient is a 84-year-old male admitted with a reason for visit of Rick,Syncope,Cellulitis R Leg. Source: Patient History of Present Illness Mr. Liu is an 84 year old male with atrial fibrillation, hypertension, and BPH who presents with pre-syncope and found to have cellulitis of the right leg and RICK. Patient has history of dizziness 2/2 low blood pressure. It would norm ally happen in the morning and after lunch. When it occurs, he would sit down and it would resolve after 2 to 3 minutes. About 1 week ago, he was having urinary retention and was started on tamsulosin 0.8mg qHS and amoxicillin. It helped with his urinary retention. His lisinopril was decreased to once a day (from twice a day) since starting tamsulosin. About a few days ago, he started to notice increase swelling, erythema, and pain from an open wound on his right ankle. He was on his way to see his primary, Dr. Saldivar. While walking across the parking lot, he had presyncopal prodrome and felt lightheaded. He lowered himself to the ground. He felt better after [address] Saldivar saw the p atient in the parking lot and had the patient come to the ED for evaluation. Vital signs are stable and patient does not have any fever. There is no leukocytosis, but patient does have RICK with creatinine of 1.8. Patient denies any fever, chest pain, dyspnea, abdominal pain, or dysuria. Patient will be admitted for presyncope, RICK, and cellulitis of the right leg. Home Medications Scheduled Apixaban (Eliquis) 5 Mg Tablet, 5 MG PO BID, (Reported) Aspirin (Aspirin EC) 81 Mg Tab, 81 MG PO DAILY, (Reported) Cholecalciferol (Vitamin D3) (Vitamin D3) 1,000 Unit Tablet, 2,000 UNITS PO DAILY, (Reported) Fish Oil/Dha/Epa (Fish Oil 1,200 mg Fish Oil) 1 Each Capsule, 1,200 MG PO QHS, (Reported) Isosorbide Mononitrate (Isosorbide Mononitrate ER) 60 Mg Tab.er.24h, 60 MG PO DAILY, (Reported) Levothyroxine Sodium (Levothyroxine Sodium) 50 Mcg Tablet, 50 MCG PO DAILY, (Reported) Lisinopril (Lisinopril) 20 Mg Tablet, 20 MG PO QHS, (Reported) Metoprolol Tartrate (Metoprolol Tartrate) 100 Mg Tablet, 100 MG PO BID, (Reported) Montelukast Sodium (Montelukast Sodium) 10 Mg Tablet, 10 MG PO DAILY, (Reported) Pantoprazole Sodium (Pantoprazole Sodium) 40 Mg Tab, 40 MG PO DAILY, (Reported) Rosuvastatin Calcium (Rosuvastatin Calcium) 40 Mg Tablet, 40 MG PO QHS, (Reported) Spironolactone (Spironolactone) 25 Mg Tablet, 25 MG PO DAILY, (Reported) Tamsulosin Hcl (Tamsulosin HCl) 0.4 Mg Capsule, 0.8 MG PO QHS, (Reported) Ubidecarenone/Vit E Acet (Co Q-10 100 mg Softgel) 1 Each Capsule, 100 MG PO QHS, (Reported) Allergies Coded Allergies: fluticasone furoate (Verified Allergy, Intermediate, Rash, 11/19/20) vilanterol (Verified Allergy, Intermediate, Rash, 11/19/20) Past Medical History Medical History 1. Coronary artery disease s/p stent 2. Bilateral carotid artery stenosis 2/2 endarterectomy 3. Hypercholesterolemia 4. Hypertension 5. GERD 6. Atrial fibrillation 7. BPH Surgical History 1. Carotid endarterectomy bilaterally 2. Bilateral knee replacements 3. Cardiac stents 4. Bilateral hernia repair Family History Father: at 64 yo from heart problem Mother: at 82 yo from seizure Social History * Smoker: Denies Alcohol: occationally Drugs: denies A-FIB/CHADSVASC A-FIB History Current/History of A-Fib/PAF?: Yes Current PO Anticoag Therapy: Yes Review of Systems Constitutional: Denies: Chills, Fever Eyes: Denies: Vision change ENT: Denies: Sore Throat Skin: Reports: Rash (Right leg erythema around open wound) Pulmonary: Reports: Dyspnea (On exertion), Cough (2/2 PND) Cardiovascular: Reports: Lt Headedness (When standing and walking); Denies: Chest Pain Gastrointestinal: Denies: Abdominal Pain, Diarrhea Genitourinary: Denies: Dysuria Hematologic: Denies: Bruising Neurological: Denies: Numbness Psych: Reports: Anxiety (occasional) Physical Examination General Exam: Positive: Alert, Cooperative Eye Exam: Positive: EOMI; Negative: Sclera icteric ENT Exam: Positive: Atraumatic Neck Exam: Positive: Supple Chest Exam: Positive: Clear to auscultation; Negative: Rales, Rhonchi, Wheezing Heart Exam: Positive: Rate Normal, Irregular Rhythm Abdomen Exam: Positive: Normal bowel sounds, Soft; Negative: Tenderness Extremity Exam: Positive: Edema (Mild) Neuro Exam: Positive: Normal Speech, Cranial Nerves 3-12 NL Psych Exam: Positive: Mental status NL, Mood NL Vital Signs Vital Signs Date Time Temp Pulse Resp B/P (MAP) Pulse Ox O2 Delivery O2 Flow Rate FiO2 11/19/20 15:50 90 18 97 Room Air 11/19/20 12:06 97.5 11/19/20 11:45 107/53 (71) Laboratory Data Labs 24H Laboratory Tests 2 11/19/20 12:09: ZH-Hmc-S-Type Natriuretic Peptide 2623H 11/19/20 12:12: Immature Granulocyte % (Auto) 0.3, Neutrophils (%) (Auto) 73.2H, Lymphocytes (%) (Auto) 10.8L, Monocytes (%) (Auto) 12.2H, Eosinophils (%) (Auto) 3.2H, Basophils (%) (Auto) 0.3, Neutrophils # (Auto) 5.5, Lymphocytes # (Auto) 0.8L, Monocytes # (Auto) 0.9H, Eosinophils # (Auto) 0.2, Basophils # (Auto) 0.0, Nucleated Red Blood Cells % (auto) 0.0, Total Bilirubin 0.6, Direct Bilirubin 0.2, Aspartate Amino Transf (AST/SGOT) 25, Alanine Aminotransferase (ALT/SGPT) 23, Alkaline Phosphatase 132H, Total Protein 6.3L, Albumin 3.2, Albumin/Globulin Ratio 1.0, Thyroid Stimulating Hormone (TSH) 1.880 11/19/20 12:21: POC Glucose (Misc Panel) 144H, POC Sodium (Misc Panel) 141, POC Potassium (Misc Panel) 4.6, POC Chloride (Misc Panel) 104, POC Total CO2 (Misc Panel) 22.0L, POC Blood Urea Nitrogen (Misc Panel 29H, POC Ionized Calcium (Misc Panel) 5.2, POC Creatinine (Misc Panel) 1.8H, POC Hematocrit (Misc Panel) 32.0L 11/19/20 12:23: POC Troponin I (Misc) 0.00 11/19/20 12:27: Lactic Acid Level 1.0 11/19/20 14:14: CBC/BMP Laboratory Tests 11/19/20 12:12 Microbiology Microbiology 11/19/20 Blood Culture, Received Pending 11/19/20 Blood Culture, Received Pending Assessment/Plan Mr. Liu is an 84 year old male with atrial fibrillation, hypertension, and BPH who presents with pre-syncope and found to have cellulitis of the right leg and RICK. Patient is on multiple antihypertensives including Imdur, lisinopril, metoprolol tartrate, spironolactone, and tamsulosin. Tamsulosin was started a week ago, but he has been having pre-syncopal event prior to tamsulosin. Otherwise, patient has RICK which may be from low blood pressure and lisinopril/spironolactone. Cellulitis of the right leg will be empirically treated with Vancomycin. Plan / VTE VTE Prophylaxis Ordered?: Yes Plan Plan 1. Pre-syncope -Most likely secondary to antihypertensives. Tamsulosin started 1 week ago which may have exacerbated his pre-syncope -Check orthostatic vital signs -Decrease tamsulosin from 2 pills to 1 pill -Hold spironolactone and lisinopril due to RICK -Monitor on telemetry 2. Acute kidney injury -Creatinine elevated at 1.8 -May be secondary to hypotension and lisinopril/spirolactone -IVF and hold lisinopril/spirolactone -Monitor creatinine -Order for UA and US kidney 3. Cellulitis of right leg -Erythema, warmth, and swelling -Vancomycin 4. Persistent atrial fibrillation -Continue metoprolol tartrate -Decrease apixaban from 5mg BID to 2.5mg BID due to Age>80 and creatinine>1.5 5. CAD -Stable -Continue aspirin, rosuvastatin, metoprolol, and Imdur -Hold lisinopril 6. GERD -Continue pantoprazole 7. BPH -Decrease tamsulosin from 2 tabs to 1tab 8. DVT ppx -On apixaban Disposition: Pending clinical improvement in cellulitis and improvement in renal function MOUNIKA ULLOA DO Nov 19, 2020 16:41
[2020-11-19 16:50] LABS: C REACTIVE PROTEIN QUANTITATIV 1.89 MG/DL (0.00-0.30)
[2020-11-19 17:18] LABS: ERYTHROCYTE SEDIMENTATION RATE 31 mm/hr (0-20)
--- NOTE | 2020-11-19 17:54 | REP ---
INDICATION: JAMES. COMPARISON: None. TECHNIQUE: Real-time sonographic evaluation of the kidneys is performed. FINDINGS: Renal cortical echogenicity pattern is normal bilaterally and contours are smooth. No hydronephrosis bilaterally. A cyst in the mid right kidney measures 1.5 cm. Two cysts in the mid left kidney measured 2.6 cm and 8 mm maximally. The right kidney measures 9.8 x 4.7 x 4.9 cm. Left renal dimensions are 10.8 x 5.1 x 5.6 cm. The urinary bladder is unremarkable. The ureteral jets are not seen bilaterally with Doppler color evaluation. IMPRESSION: No hydronephrosis. Bilateral renal cysts. <Electronically signed by Eleazar Alba > 11/19/20 [id number]
[2020-11-19 17:55] LABS: INR 1.78; PROTHROMBIN TIME 21.1 SECONDS (12.5-14.3)
[2020-11-19] MEDS ORDERED: VANCOMYCIN HCL 750 MG, VIAL MATE ADAPTER 1 EACH in NS 250 ML IV ONE (18:00)
[2020-11-19] MEDS ORDERED: VANCOMYCIN HCL 1,000 MG, VIAL MATE ADAPTER 1 EACH in NS 250 ML IV SCH (19:00)
[2020-11-19] MEDS ORDERED: VANCOMYCIN HCL 500 MG in D5W MINI-BAG PLUS 100 ML IV ONE (19:00)
--- NOTE | 2020-11-19 21:28 | ECGEPIP ---
[facility] - ED Test Date: 2020-11-19 Pat Name: YUMIKO HAM Department: Room: - Gender: Male Data Entry Technician: THEODORE : 1935 Requested By: Nusrat Bass Order Number: [id number] Reading MD: Taurus Marshall Measurements Intervals [place] Rate: 77 P: NC: QRS: -41 QRSD: 100 T: 36 QT: 360 QTc: 407 Interpretive Statements Atrial fibrillation Left axis deviation RHYTHM CHANGE COMPARED TO 09/13/16 Electronically Signed on 11-19-2020 21:28:20 EDT by Taurus Marshall
[2020-11-19] MEDS: ROSUVASTATIN 10 MG TAB (CRESTOR) PO SCH (21:29)
[2020-11-19] MEDS: APIXABAN 2.5 MG TAB (ELIQUIS) PO SCH (21:29)
[2020-11-19 21:30] VITALS: BP_SYST 105; BP_SYST 113; BP_SYST 121; BP_DIAS 61; BP_DIAS 66
[2020-11-19] MEDS: TAMSULOSIN 0.4 MG CAP PO SCH (21:30)
[2020-11-19] MEDS: METOPROLOL TARTRATE 100 MG TAB PO SCH (23:21)
[2020-11-20 05:57] LABS: HEMATOCRIT 34.6 % (42.0-52.0); HEMOGLOBIN 11.3 g/dl (13.5-17.5); MEAN CORPUSCULAR HEMOGLOBIN 31.3 pg (27.0-33.0); MEAN CORPUSCULAR HGB CONC 32.7 g/dl (32.0-36.5); MEAN CORPUSCULAR VOLUME 95.8 fl (80.0-96.0); PLATELET COUNT, AUTOMATED 134 10^3/uL (150-450); RED BLOOD COUNT 3.61 10^6/uL (4.30-6.10); WHITE BLOOD COUNT 7.4 10^3/uL (4.0-10.0)
[2020-11-20 06:00] VITALS: BP_SYST 111; BP_SYST 95; BP_DIAS 58; BP_DIAS 65
[2020-11-20] MEDS: LEVOTHYROXINE 50MCG TABLET (0.05MG) PO SCH (06:03)
[2020-11-20 06:19] LABS: BLOOD UREA NITROGEN 25 MG/DL (7-18); CALCIUM LEVEL 8.8 MG/DL (8.8-10.2); CARBON DIOXIDE LEVEL 26 MEQ/L (21-32); CHLORIDE LEVEL 109 MEQ/L (98-107); CREATININE FOR GFR 1.48 MG/DL (0.70-1.30); GLOMERULAR FILTRATION RATE 48.1 (>35); GLUCOSE, FASTING 152 MG/DL (70-100); POTASSIUM SERUM 4.3 MEQ/L (3.5-5.1); SODIUM LEVEL 140 MEQ/L (136-145)
[2020-11-20 08:28] LABS: VANCOMYCIN RANDOM 9.9 UG/ML
[2020-11-20] MEDS: METOPROLOL TARTRATE 100 MG TAB PO SCH ×2 (09:12→20:18)
[2020-11-20] MEDS: VITAMIN D 1,000 INTERNATIONAL UNITS TABLET PO SCH (09:12)
[2020-11-20] MEDS: VANCOMYCIN HCL 1,000 MG, VIAL MATE ADAPTER 1 EACH in NS 250 ML IV SCH (09:12)
[2020-11-20] MEDS: DOCUSATE SODIUM 100MG CAPSULE PO SCH ×2 (09:12→20:16)
[2020-11-20] MEDS: ASPIRIN 81MG ENTERIC TABLET PO SCH (09:12)
[2020-11-20] MEDS: MONTELUKAST 10 MG TAB PO SCH (09:12)
[2020-11-20] MEDS: PANTOPRAZOLE 40MG TAB (PROTONIX) PO SCH (09:13)
[2020-11-20] MEDS: APIXABAN 2.5 MG TAB (ELIQUIS) PO SCH ×2 (09:13→20:16)
[2020-11-20] MEDS: ISOSORBIDE MON. (IMDUR) 60 MG XR TAB PO SCH (09:13)
[2020-11-20] MEDS: SIMETHICONE 80MG CHEW TAB PO SCH ×3 (09:13→20:16)
[2020-11-20 11:47] LABS: TROPONIN I < 0.02 NG/ML (< 0.10)
--- NOTE | 2020-11-20 13:19 | IPNPDOC ---
Subjective Date Seen The patient was seen on 11/20/20. Subjective Chief Complaint/HPI Mr. Liu is an 84 year old male with atrial fibrillation, hypertension, and BPH who presents with pre-syncope and found to have cellulitis of the right leg and JAMES. This morning, he is feeling better. There is still erythema and tenderness around his coin shaped lesion of his leg. Patient reports that the pain is better. Otherwise renal function is improving. If he continues improving, possible discharge tomorrow. Objective Physical Examination General Exam: Positive: Alert, Cooperative Eye Exam: Positive: EOMI; Negative: Sclera icteric ENT Exam: Positive: Atraumatic Neck Exam: Positive: Supple Chest Exam: Positive: Clear to auscultation; Negative: Rales, Rhonchi, Wheezing Heart Exam: Positive: Rate Normal, Irregular Rhythm Abdomen Exam: Positive: Normal bowel sounds, Soft; Negative: Tenderness Extremity Exam: Positive: Edema (Mild) Skin Exam: Positive: Other skin issue (Mathis shaped eschar with erythema surrounding. ) Neuro Exam: Positive: Normal Speech, Cranial Nerves 3-12 NL Psych Exam: Positive: Mental status NL, Mood NL Assessment /Plan Assessment Mr. Liu is an 84 year old male with atrial fibrillation, hypertension, and BPH who presents with pre-syncope and found to have cellulitis of the right leg and JAMES. Patient is on multiple antihypertensives including Imdur, lisinopril, metoprolol tartrate, spironolactone, and tamsulosin. Tamsulosin was started a week ago, but he has been having pre-syncopal event prior to tamsulosin. Otherwise, patient has JAMES which may be from low blood pressure and lisinopri l/spironolactone. Cellulitis of the right leg will be empirically treated with Vancomycin. Plan/VTE VTE Prophylaxis Ordered?: Yes Plan 1. Pre-syncope -Most likely secondary to antihypertensives. Tamsulosin started 1 week ago which may have exacerbated his pre-syncope -Check orthostatic vital signs -Decrease tamsulosin from 2 pills to 1 pill -Hold spironolactone and lisinopril due to JAMES -Monitor on telemetry 2. Acute kidney injury -Creatinine elevated at 1.8 -May be secondary to hypotension and lisinopril/spirolactone -IVF and hold lisinopril/spirolactone -Monitor creatinine -Order for UA and US kidney 3. Cellulitis of right leg -Erythema, warmth, and swelling -Vancomycin day 2 4. Persistent atrial fibrillation -Continue metoprolol tartrate -Decrease apixaban from 5mg BID to 2.5mg BID due to Age>80 and creatinine>1.5 5. CAD -Stable -Continue aspirin, rosuvastatin, metoprolol, and Imdur -Hold lisinopril 6. GERD -Continue pantoprazole 7. BPH -Decrease tamsulosin from 2 tabs to 1tab 8. DVT ppx -On apixaban Disposition: Pending clinical improvement in cellulitis and improvement in renal function. Possible discharge tomorrow. Patient may benefit from seeing dermatology outpatient about his coin shaped lesion surround by erythema. Consider sterile pyoderma gangrenosum vs malignancy vs recurrent infection? VS, I&O, 24H, [place] Vital Signs/I&O Vital Signs Date Time Temp Pulse Resp B/P (MAP) Pulse Ox O2 Delivery O2 Flow Rate FiO2 11/20/20 09:12 81 121/72 11/20/20 06:00 98.2 18 96 Room Air I&O- Last 24 Hours up to 6 AM 11/20/20 06:00 Intake Total 1422.5 ml Output Total 240 ml Balance 1182.5 ml Laboratory Data 24H LABS Laboratory Tests 2 11/19/20 14:14: Coronavirus (COVID-19)(PCR) NEGATIVE, Influenza Type A (RT-PCR) NEGATIVE, Influenza Type B (RT-PCR) NEGATIVE, Respiratory Syncytial Virus (PCR) NEGATIVE 11/19/20 17:22: Prothrombin Time 21.1H, Prothromb Time International Ratio 1.78, Activated Partial Thromboplast Time 36.0 11/20/20 02:35: Urine Color YELLOW, Urine Appearance CLEAR, Urine pH 5.0, Urine Specific [place] 1.010, Urine Protein NEGATIVE, Urine Glucose (UA) NEGATIVE, Urine Ketones NE GATIVE, Urine Blood NEGATIVE, Urine Nitrite NEGATIVE, Urine Bilirubin NEGATIVE, Urine Urobilinogen 0.2, Urine Leukocyte Esterase NEGATIVE, Urine WBC (Auto) 0, Urine RBC (Auto) 2, Urine Hyaline Casts (Auto) 0, Urine Bacteria (Auto) NEGATIVE, Urine Squamous Epithelial Cells 0, Urine Sperm (Auto) 11/20/20 05:14: Nucleated Red Blood Cells % (auto) 0.0, Anion Gap 5L, Glomerular Filtration Rate 48.1, Calcium Level 8.8, Troponin I < 0.02, Random Vancomycin Level 9.9 CBC/BMP Laboratory Tests 11/20/20 05:14 Microbiology Microbiology 11/19/20 Blood Culture - Preliminary, Resulted No growth after 24 hours . All specim... 11/19/20 Blood Culture - Preliminary, Resulted No growth after 24 hours . All specim... MOUNIKA ULLOA DO Nov 20, 2020 13:19
[2020-11-20 14:00] VITALS: BP 107/69
[2020-11-20] MEDS: TAMSULOSIN 0.4 MG CAP PO SCH (20:16)
[2020-11-20] MEDS: ROSUVASTATIN 10 MG TAB (CRESTOR) PO SCH (20:16)
[2020-11-20 22:00] VITALS: BP 107/58
[2020-11-21] MEDS: LEVOTHYROXINE 50MCG TABLET (0.05MG) PO SCH (05:58)
[2020-11-21 06:00] VITALS: BP_SYST 111; BP_SYST 113; BP_SYST 117; BP_DIAS 70; BP_DIAS 71; BP_DIAS 79
[2020-11-21 08:15] LABS: HEMATOCRIT 35.3 % (42.0-52.0); HEMOGLOBIN 11.7 g/dl (13.5-17.5); MEAN CORPUSCULAR HEMOGLOBIN 31.3 pg (27.0-33.0); MEAN CORPUSCULAR HGB CONC 33.1 g/dl (32.0-36.5); MEAN CORPUSCULAR VOLUME 94.4 fl (80.0-96.0); PLATELET COUNT, AUTOMATED 145 10^3/uL (150-450); RED BLOOD COUNT 3.74 10^6/uL (4.30-6.10)
[2020-11-21 08:39] LABS: C REACTIVE PROTEIN QUANTITATIV 3.7 MG/DL (0.00-0.30); CALCIUM LEVEL 9.1 MG/DL (8.8-10.2); CREATININE FOR GFR 1.38 MG/DL (0.70-1.30); GLOMERULAR FILTRATION RATE 52.1 (>35); POTASSIUM SERUM 4.4 MEQ/L (3.5-5.1); VANCOMYCIN LEVEL TROUGH 10.8 UG/ML (10.0-20.0)
[2020-11-21 08:45] LABS: ERYTHROCYTE SEDIMENTATION RATE 39 mm/hr (0-20)
[2020-11-21] MEDS ORDERED: FLOM0.4C39 PO (08:53)
[2020-11-21] MEDS ORDERED: DOXY100C PO (08:53)
[2020-11-21] MEDS: VANCOMYCIN HCL 1,000 MG, VIAL MATE ADAPTER 1 EACH in NS 250 ML IV SCH (09:00)
[2020-11-21] MEDS: ISOSORBIDE MON. (IMDUR) 60 MG XR TAB PO SCH (09:45)
[2020-11-21] MEDS: PANTOPRAZOLE 40MG TAB (PROTONIX) PO SCH (09:45)
[2020-11-21] MEDS: MONTELUKAST 10 MG TAB PO SCH (09:45)
[2020-11-21] MEDS: VITAMIN D 1,000 INTERNATIONAL UNITS TABLET PO SCH (09:45)
[2020-11-21] MEDS: DOCUSATE SODIUM 100MG CAPSULE PO SCH (09:45)
[2020-11-21 09:46] VITALS: BP 130/54
[2020-11-21] MEDS: SIMETHICONE 80MG CHEW TAB PO SCH (09:46)
[2020-11-21] MEDS: ASPIRIN 81MG ENTERIC TABLET PO SCH (09:46)
[2020-11-21] MEDS: APIXABAN 2.5 MG TAB (ELIQUIS) PO SCH (09:46)
[2020-11-21] MEDS: METOPROLOL TARTRATE 100 MG TAB PO SCH (09:46)
[2020-11-21] MEDS ORDERED: DOXYCYCLINE HYCLATE 100MG TABLET PO ONE (10:00)
--- NOTE | 2020-11-21 16:03 | DS.PDOC ---
Discharge Summary General Date of Admission Nov 19, 2020 at 15:32 Date of Discharge Nov 21, 2020 Discharge Summary PROCEDURES PERFORMED DURING STAY: None ADMITTING DIAGNOSES: 1. Pre-syncope 2. RICK 3. Cellulitis of right leg 4. Persistent atrial fibrillation 5. CAD 6. GERD 7. BPH DISCHARGE DIAGNOSES: 1. Pre-syncope 2. RICK 3. Cellulitis of right leg 4. Persistent atrial fibrillation 5. CAD 6. GERD 7. BPH COMPLICATIONS/CHIEF COMPLAINT: Rick,Syncope,Cellulitis R Leg. HISTORY OF PRESENT ILLNESS: Mr. Liu is an 84 year old male with atrial fibrillation, hypertension, and BPH who presents with pre-syncope and found to have cellulitis of the right leg and RICK. Patient has history of dizziness 2/2 low blood pressure. It would normally happen in the morning and after lunch. When it occurs, he would sit down and it would resolve after 2 to 3 minutes. About 1 week ago, he was having urinary retention and was started on tamsulosin 0.8mg qHS and amoxicillin. It helped with his urinary retention. His lisinopril was decreased to once a day (from twice a day) since starting tamsulosin. About a few days ago, he started to notice increase swelling, erythema, and pain from an open wound on his right ankle. He was on his way to see his primary, Dr. Saldivar. While walking across the parking lot, he had presyncopal prodrome and felt lightheaded. He lowered himself to the ground. He felt better after [address] Saldivar saw the patient in the parking lot and had the patient come to the ED for evaluation. Vital signs are stable and patient does not have any fever. There is no leukocytosis, but patient does have RICK with creatinine of 1.8. Patient denies any fever, chest pain, dyspnea, abdominal pain, or dysuria. Patient will be admitted for presyncope, RICK, and cellulitis of the right leg. HOSPITAL COURSE: Patient did well during hospitalization. He cleared physical therapy. His lisinopril was discontinued and tamsulosin was decreased from 2 tabs at night to 1 tab at night. Blood pressure was stable and he did not have any further episodes of lightheadedness while here. Renal function improved and now back at baseline. Otherwise, he was put on Vancomycin initially for the cellulitis. He was feeling better. Switched from Vancomycin to Doxycycline. Today, he feels well and feels ready for home. I suggested that he sees dermatology for biopsy of the coin shaped skin lesion. Patient tells me that he has recurrent infections, but it may not be infection. Considering malignancy vs pyoderma gangrenosum vs cellulitis. DISCHARGE MEDICATIONS: Please see below. ALLERGIES: Please see below. PHYSICAL EXAMINATION ON DISCHARGE: VITAL SIGNS: Please see below. GENERAL: Comfortable, in no apparent distress. HEENT: Head normocephalic/atraumatic, EOMI, sclera clear. NECK: Supple. RESPIRATORY: Lungs clear to auscultation bilaterally, no rales, wheeze or rhonchi. CARDIOVASCULAR: Regular rate and irregular rhythm. ABDOMEN: Soft, nontender, no guarding or rebound tenderness. Normal bowel sounds. MUSCLE SKELETAL: Muscle strength 5/5 in all extremities. CUTANEOUS: Patient has a coin-shaped ulcer with eschar on right leg with surrounding erythema NEUROLOGICAL: CN 312 grossly intact. PSYCHOLOGICAL: Normal mood and affect LABORATORY DATA: Please see below. IMAGING: Radiologist interpretation Chest x-ray No acute pulmonary disease.Mild cardiomegaly and stable chronic interstitial changes. Ultrasound kidneys No hydronephrosis. Bilateral renal cysts. PROGNOSIS: Good ACTIVITY: As tolerated. DIET: 2 g sodium DISCHARGE PLAN: Home DISPOSITION: Home. DISCHARGE INSTRUCTIONS: 1. Follow-up with her PCP within one week 2. Would recommend referral to dermatology ITEMS TO FOLLOWUP ON ON OUTPATIENT: 1. Gaffney-shaped skin lesion on right leg. Consider cellulitis versus pyoderma [place] versus malignancy DISCHARGE CONDITION: Stable Total time spent on discharge planning, discharge summary, and medication reconciliation: 45 minutes Vital Signs/I&Os Vital Signs Date Time Temp Pulse Resp B/P (MAP) Pulse Ox O2 Delivery O2 Flow Rate FiO2 11/21/20 09:46 86 130/54 11/21/20 06:00 97.1 18 95 Room Air I&O- Last 24 Hours up to 6 AM 11/21/20 06:00 Intake Total 1720 ml Balance 1720 ml Laboratory Data Labs 24H Laboratory Tests 2 11/21/20 07:47: Nucleated Red Blood Cells % (auto) 0.0, Erythrocyte Sedimentation Rate 39H, Anion Gap 5L, Glomerular Filtration Rate 52.1, Calcium Level 9.1, C-Reactive Protein, Quantitative 3.70H, Vancomycin Level Trough 10.8 CBC/BMP Laboratory Tests 11/21/20 07:47 Microbiology Microbiology 11/19/20 Blood Culture - Preliminary, Resulted No Growth after 48 hours. All Specime... 11/19/20 Blood Culture - Preliminary, Resulted No Growth after 48 hours. All Specime... Discharge Medications Scheduled Apixaban (Eliquis) 5 Mg Tablet, 5 MG PO BID, (Reported) Aspirin (Aspirin EC) 81 Mg Tab, 81 MG PO DAILY, (Reported) Cholecalciferol (Vitamin D3) (Vitamin D3) 1,000 Unit Tablet, 2,000 UNITS PO DAILY, (Reported) Doxycycline Hyclate (Doxycycline Hyclate) 100 Mg Capsule, 100 MG PO BID Fish Oil/Dha/Epa (Fish Oil 1,200 mg Fish Oil) 1 Each Capsule, 1,200 MG PO QHS, (Reported) Isosorbide Mononitrate (Isosorbide Mononitrate ER) 60 Mg Tab.er.24h, 60 MG PO DAILY, (Reported) Levothyroxine Sodium (Levothyroxine Sodium) 50 Mcg Tablet, 50 MCG PO DAILY, (Reported) Metoprolol Tartrate (Metoprolol Tartrate) 100 Mg Tablet, 100 MG PO BID, (Reported) Montelukast Sodium (Montelukast Sodium) 10 Mg Tablet, 10 MG PO DAILY, (Reported) Pantoprazole Sodium (Pantoprazole Sodium) 40 Mg Tab, 40 MG PO DAILY, (Reported) Rosuvastatin Calcium (Rosuvastatin Calcium) 40 Mg Tablet, 40 MG PO QHS, (Reported) Spironolactone (Spironolactone) 25 Mg Tablet, 25 MG PO DAILY, (Reported) Tamsulosin HCl (Flomax) 0.4 Mg Capsule, 0.4 MG PO QHS Ubidecarenone/Vit E Acet (Co Q-10 100 mg Softgel) 1 Each Capsule, 100 MG PO QHS, (Reported) Allergies Coded Allergies: fluticasone furoate (Verified Allergy, Intermediate, Rash, 11/19/20) vilanterol (Verified Allergy, Intermediate, Rash, 11/19/20) MOUNIKA ULLOA DO Nov 21, 2020 15:24
--- NOTE | 2020-11-22 12:07 | ECHO ---
ECHOCARDIOGRAM DATE OF PROCEDURE: 11/20/2020 Age: 84 Gender: Male Height: Weight: REFERRING PHYSICIAN: Dr. Suhail Reinoso PATIENT LOCATION: Room 4201. REASON FOR TESTING: Syncope. 2D MEASUREMENTS: IVS 1.3 cm LV 4.1 cm LVPW 1.2 cm LA 4.6 cm Aorta 3.3 cm IVC 0.1 cm DOPPLER MEASUREMENT Peak velocity across the aortic valve 3.1 m/s Peak velocity across the LVOT 0.75 m/s Peak gradient across the aortic valve 38 mmHg Mean gradient across the aortic valve 21 mmHg Mitral E 1.2 Mitral A 0.37 with a ratio of 3.1 Maximum tricuspid valve velocity 2.1 m/s 2D COMMENTS: 1. Normal left ventricular size with mildly increased left ventricular wall thickness. Probably low normal global left ventricular systolic pressure with LVEF estimated at 55%. 2. Aortic valve sclerosis with moderate aortic stenosis, but no aortic regurgitation. 3. Mitral annulus calcification with a mildly enlarged left atrium and mild mitral regurgitation. 4. Mild tricuspid regurgitation with a normal calculated pulmonary artery systolic pressure.
== END 2020-11-21 15:19 | disposition home or self-care (01) | DRG 603 ==
LOC: EDSEX 11:20 → M ED 11:20 → EDBD 11:20 → M ED INP 15:32 → ENRESERV 18:22 → M MSPAV 20:38
PROVIDERS: ADMIT Internal Medicine; ATTEND Internal Medicine
DX: L03.115 Cellulitis of right lower limb (principal); I48.19 Other persistent atrial fibrillation; N17.9 Acute kidney failure, unspecified; K21.9 Gastro-esophageal reflux disease without esophagitis; N40.0 Benign prostatic hyperplasia without lower urinary tract symptoms; I25.10 Atherosclerotic heart disease of native coronary artery without angina pectoris; Z79.899 Other long term (current) drug therapy; Z79.82 Long term (current) use of aspirin; Z88.8 Allergy status to other drugs, medicaments and biological substances; Z95.2 Presence of prosthetic heart valve; Z96.653 Presence of artificial knee joint, bilateral